=== PATIENT | female | born 1995 ===

== ENCOUNTER 2017-12-26 14:02 | Emergency (ER) | payer BC ==
[~2017-12-26] VITALS: Ht 165.1 cm; Wt 54.4 kg
[~2017-12-26 14:02] MED LIST: IBUP800 PO
[2017-12-26] MEDS ORDERED: Zofran Odt4 MG SL (15:23)
== END 2017-12-26 15:28 | disposition home or self-care (01) ==
LOC: ER 14:02
DX: S09.90XA Unspecified injury of head, initial encounter (principal); F17.200 Nicotine dependence, unspecified, uncomplicated; Z79.1 Long term (current) use of non-steroidal anti-inflammatories (NSAID); W55.12XA Struck by horse, initial encounter
CPT/HCPCS: 70450; 99284

== ENCOUNTER 2024-12-15 22:46 | Inpatient (IN) | payer OTHER ==
[~2024-12-15] VITALS: Ht 167.6 cm; Wt 72.5 kg
[~2024-12-15 22:46] MED LIST changes: +Zofran Odt4 MG SL
[2024-12-15] MEDS ORDERED: Lactated Ringer's 1,000 ML IV ONE (23:07)
[2024-12-15] MEDS ORDERED: CeFAZolin Sodium 2,000 MG in NS 100 ML IV SCH (23:30)
[2024-12-15] MEDS ORDERED: Lactated Ringer's 1,000 ML IV SCH (23:30)
[2024-12-15] MEDS ORDERED: Tranexamic Acid 100 ML IV PRN (23:35)
[2024-12-15] MEDS ORDERED: Calcium Carbonate 500 MG Tab Chew PO PRN (23:35)
[2024-12-15] MEDS ORDERED: OXYTOCIN/RINGER'S LACTATE 500 ML IV PRN (23:35)
[2024-12-15] MEDS ORDERED: Ondansetron HCl 2 MG / ML 2ML Vial IV PRN (23:35)
[2024-12-15] MEDS ORDERED: Misoprostol 200 MCG Tab BC PRN (23:35)
[2024-12-15] MEDS ORDERED: Carboprost Tromethamine 250 MCG/ML 1ML Amp IM PRN (23:35)
[2024-12-15] MEDS ORDERED: Lactated Ringer's 1,000 ML IV PRN (23:35)
[2024-12-15] MEDS ORDERED: Acetaminophen 500 MG Tab PO PRN (23:35)
[2024-12-15] MEDS ORDERED: Methylergonovine Maleate 0.2MG / ML 1ML Amp IM PRN (23:35)
[2024-12-15] MEDS ORDERED: Misoprostol 200 MCG Tab PR PRN (23:35)
[2024-12-15] MEDS ORDERED: Oxytocin 10 Unit / ML Vial IM PRN (23:35)
[2024-12-15] MEDS ORDERED: Metoclopramide HCl 5MG / ML 2ML Vial IV ONE (23:40)
[2024-12-15] MEDS ORDERED: Citric Acid/Sodium Citrate 30 ML BTL PO ONE (23:40)
[2024-12-15 23:42] LABS: BASOPHILS ABSOLUTE AUTO 0.05 K/mm3 (0.00-0.23); BASOPHILS PERCENT AUTO 1 % (0-2); EOSINOPHILS ABSOLUTE AUTO 0.08 K/mm3 (0.00-0.68); EOSINOPHILS PERCENT AUTO 1 % (0-6); Hematocrit 30.7 % (33.0-51.0); Hemoglobin 9.9 g/dL (11.5-16.0); IMMATURE GRAN ABSOLUTE AUTO 0.06 K/mm3 (0.00-0.10); IMMATURE GRAN PERCENT AUTO 1 % (0-1); LYMPHOCYTES ABSOLUTE AUTO 1.57 K/mm3 (0.84-5.20); LYMPHOCYTES PERCENT AUTO 15 % (21-46); MONOCYTES ABSOLUTE AUTO 0.65 K/mm3 (0.16-1.47); MONOCYTES PERCENT AUTO 6 % (4-13); Mean Corpuscular HGB 25.7 pg (26.0-34.0); Mean Corpuscular HGB Conc 32.2 g/dL (31.5-36.5); Mean Corpuscular Volume 80 fL (80-100); Mean Platelet Volume 9.2 fL (9.1-12.4); NEUTROPHILS ABSOLUTE AUTO 8.31 K/mm3 (1.96-9.15); NEUTROPHILS PERCENT AUTO 78 % (41-73); Platelet Count 166 K/mm3 (150-400); RDW Coefficient Variation 14.5 % (11.7-14.2); Red Blood Cell Count 3.85 M/mm3 (3.80-5.20); White Blood Cell Count 10.72 K/mm3 (4.00-11.30)
[2024-12-16] VITALS (17 sets, daily range): BP systolic 105–127; BP diastolic 58–81
[2024-12-16] MEDS ORDERED: Famotidine 10 MG/ML 2ML Vial IV ONE (00:10)
[2024-12-16] MEDS ORDERED: FentaNYL Citrate 50 MCG/ML 2 ML Injection ONE (00:15)
[2024-12-16] MEDS ORDERED: Oxytocin 10 Unit / ML Vial ONE (00:19)
[2024-12-16] MEDS ORDERED: Phenylephrine HCl 100 MCG/ML-NS 10MLSYR (1MG/10ML) ONE ×2 (00:41→01:11)
[2024-12-16] MEDS ORDERED: Ketorolac Tromethamine 30mg Vial ONE (01:11)
[2024-12-16] MEDS ORDERED: OxyCODONE HCL 5 MG TAB PO PRN (01:35)
[2024-12-16] MEDS ORDERED: Misoprostol 200 MCG Tab PR PRN (01:35)
[2024-12-16] MEDS ORDERED: Ondansetron HCl 2 MG / ML 2ML Vial IV PRN (01:35)
[2024-12-16] MEDS ORDERED: Lactated Ringer's 1,000 ML IV SCH (01:40)
[2024-12-16] MEDS ORDERED: OXYTOCIN/RINGER'S LACTATE 500 ML IV SCH (01:40)
[2024-12-16] MEDS ORDERED: Simethicone 80 MG Chew PO PRN (01:40)
--- NOTE | 2024-12-16 01:40 | NUR ---
12/16/24 0140 Jolene Mack BABY BOY A @ 0049 BABY BOY B @ 0050 EBL 500ML URINE OUT 500ML
[2024-12-16] MEDS ORDERED: Acetaminophen 500 MG Tab PO PRN (01:45)
[2024-12-16] MEDS ORDERED: Magnesium Hydroxide Conc 10 ML UDC PO PRN (01:45)
[2024-12-16] MEDS ORDERED: Methylergonovine Maleate 0.2 MG Tab PO PRN (01:45)
[2024-12-16] MEDS ORDERED: DiphenhydrAMINE HCL 25 MG Cap PO PRN (01:45)
[2024-12-16] MEDS ORDERED: OxyCODONE 5 mg/Acetamin 325 mg TABLET PO PRN (01:45)
[2024-12-16] MEDS ORDERED: Ibuprofen 400 MG Tab PO PRN (01:55)
[2024-12-16] MEDS ORDERED: Ketorolac Tromethamine 30mg Vial IV PRN ×2 (01:55→16:10)
--- NOTE | 2024-12-16 02:40 | NUR ---
PRESSURE DRESSING APPLIED OVER BLOODY MEDIPORE DRESSING. NO LEAKING OUTSIDE OF MEDIPORE BANDAGE.
[2024-12-16 06:09] LABS: BASOPHILS ABSOLUTE AUTO 0.03 K/mm3 (0.00-0.23); BASOPHILS PERCENT AUTO 0 % (0-2); EOSINOPHILS ABSOLUTE AUTO 0.05 K/mm3 (0.00-0.68); EOSINOPHILS PERCENT AUTO 1 % (0-6); Hematocrit 26.3 % (33.0-51.0); Hemoglobin 8.4 g/dL (11.5-16.0); IMMATURE GRAN ABSOLUTE AUTO 0.09 K/mm3 (0.00-0.10); IMMATURE GRAN PERCENT AUTO 1 % (0-1); LYMPHOCYTES ABSOLUTE AUTO 1.49 K/mm3 (0.84-5.20); LYMPHOCYTES PERCENT AUTO 14 % (21-46); MONOCYTES ABSOLUTE AUTO 0.69 K/mm3 (0.16-1.47); MONOCYTES PERCENT AUTO 7 % (4-13); Mean Corpuscular HGB 25.7 pg (26.0-34.0); Mean Corpuscular HGB Conc 31.9 g/dL (31.5-36.5); Mean Corpuscular Volume 80 fL (80-100); Mean Platelet Volume 9.4 fL (9.1-12.4); NEUTROPHILS ABSOLUTE AUTO 8.22 K/mm3 (1.96-9.15); NEUTROPHILS PERCENT AUTO 78 % (41-73); Platelet Count 127 K/mm3 (150-400); RDW Coefficient Variation 14.4 % (11.7-14.2); RDW Standard Deviation 41.7 fL (35.1-46.3); Red Blood Cell Count 3.27 M/mm3 (3.80-5.20); White Blood Cell Count 10.57 K/mm3 (4.00-11.30)
[2024-12-16] MEDS ORDERED: Docusate Sodium 100 MG Cap PO SCH (09:00)
[2024-12-16] MEDS ORDERED: Prenatal Vit/FE Fumarate/FA 1 Tab PO SCH (09:00)
[2024-12-17 04:05] VITALS: BP 117/59
[2024-12-17 07:25] VITALS: BP 112/55
[2024-12-17 10:35] VITALS: BP 110/69
== END 2024-12-17 10:40 | disposition home or self-care (01) | DRG 784 ==
LOC: BC 22:46 → OBS 22:46 → BC 23:11
PROVIDERS: ADMIT Obstetrics & Gynecology
PROC: 0UT70ZZ Resection of Bilateral Fallopian Tubes, Open Approach (ICD-10-PCS; 2024-12-16)
PROC: 10D00Z1 Extraction of Products of Conception, Low, Open Approach (ICD-10-PCS; principal; 2024-12-16 09:30)
DX: O42.013 Preterm premature rupture of membranes, onset of labor within 24 hours of rupture, third trimester (principal); O98.52 Other viral diseases complicating childbirth; O30.043 Twin pregnancy, dichorionic/diamniotic, third trimester; Z3A.34 34 weeks gestation of pregnancy; Z37.2 Twins, both liveborn; Z30.2 Encounter for sterilization; O32.1XX2 Maternal care for breech presentation, fetus 2; B00.9 Herpesviral infection, unspecified
CPT/HCPCS: 36415; 59025; 85025; 86850; 86900; 86901; 86923; 88302; 99214; A9270; J0690; J1885; J2371; J2590; J3010; J7120